=== PATIENT | female | born 1970 | race Two or more races ===

== ENCOUNTER 2016-10-17 17:38 | Emergency (ER) | payer SELFPAY ==
[~2016-10-17] VITALS: Ht 167.6 cm; Wt 65.8 kg
[2016-10-17] MEDS ORDERED: ACETAMINOPHEN ES 500 MG TABLET ONE (18:07)
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
--- NOTE | 2016-10-17 18:14 | NUR ---
MD GALLOWAY AT
[2016-10-17] MEDS ORDERED: ACETAMINOPHEN ES 500 MG TABLET PO ONE (18:30)
[2016-10-17 20:25] VITALS: BP 129/77
--- NOTE | 2016-10-17 20:26 | NUR ---
Patient discharged to home in stable condition. Written and verbal after care instructions given. Patient verbalizes understanding of instruction. PT ambulatory with a steady gait VITAL SIGNS WITHIN NORMAL LIMITS.
== END 2016-10-17 20:26 | disposition home or self-care (01) ==
LOC: ER 17:43
DX: S16.1XXA Strain of muscle, fascia and tendon at neck level, initial encounter (principal); S39.012A Strain of muscle, fascia and tendon of lower back, initial encounter; V43.52XA Car driver injured in collision with other type car in traffic accident, initial encounter; Y93.89 Activity, other specified; Y92.413 State road as the place of occurrence of the external cause; Y99.8 Other external cause status
CPT/HCPCS: 71010; 72040; 72100; 99284; A4606; Z7610